=== PATIENT | female | born 1995 | race African-American/Black ===

== ENCOUNTER 2021-06-11 09:34 | Inpatient (IN) ==
[2021-06-11] MEDS ORDERED: ONDANSETRON 4 MG/2 ML VIAL IV PRN (10:11)
[2021-06-11] MEDS ORDERED: MEPERIDINE 50 MG/1 ML VIAL IV PRN (10:11)
[2021-06-11] MEDS ORDERED: OXYTOCIN/LR 20 UNIT/1,000 ML BAG IV PRN (10:11)
[2021-06-11] MEDS ORDERED: BUTORPHANOL 2 MG/ML VIAL IV PRN (10:11)
[2021-06-11] MEDS ORDERED: ONDANSETRON 4 MG/2 ML VIAL IV ONE (10:14)
[2021-06-11] MEDS ORDERED: FAMOTIDINE 20 MG/2 ML VIAL IV ONE (10:14)
[2021-06-11] MEDS ORDERED: diphenhydrAMINE 50 MG/1 ML VIAL IV PRN ×2 (10:14)
[2021-06-11] MEDS ORDERED: PROMETHAZINE 25 MG/1 ML VIAL IM ONE (10:14)
[2021-06-11] MEDS ORDERED: hydrOXYzine HCL 25 MG/1 ML VIAL IM PRN (10:14)
[2021-06-11] MEDS ORDERED: ePHEDrine 50 MG/ML VIAL IV PRN (10:14)
[2021-06-11] MEDS ORDERED: NALOXONE 0.4 MG/ML VIAL IV PRN (10:14)
[2021-06-11] MEDS ORDERED: CITRIC ACID/SODIUM CITRATE 30 ML UDCUP PO ONE (10:14)
[2021-06-11] MEDS: LACTATED RINGERS 1,000 ML IV PRN ×2 (10:25→11:14)
[2021-06-11 10:28] LABS: Basophils % 0.4 % (0.0-0.8); Eosinophils % 0.2 % (0.00-10.9); Hematocrit 35.5 VOL% (35.7-47.0); Hemoglobin 11.9 GM/DL (12.0-16.0); Immature Granulocytes % 0.4 %; Immature Granulocytes Absolute 0.02 #; Lymphocytes # 0.7 10*3/uL (1.4-4.0); Lymphocytes % 13.1 % (21.3-54.2); Mean Corpuscular HGB Conc 33.5 GM/DL (32-36); Mean Corpuscular Volume 86.8 FL (87-102); Mean Platelet Volume 9.3 FL (9.6-12.0); Monocytes % 10.4 % (1.7-12.7); Neutrophils % 75.5 % (38.7-73.9); Platelet Count 276 T/CUMM (130-400); Red Blood Count 4.09 MC/CUMM (3.8-5.5); Red Cell Distribution Width 14.9 % (9.3-17.3); White Blood Count 5.4 T/CUMM (4-12)
[2021-06-11] MEDS ORDERED: fentaNYL 2 MCG/ROPIV 0.2% EPID 100 ML EPIDURAL SCH (10:30)
[2021-06-11 10:55] LABS: Alanine Aminotransferase 19 U/L (13-56); Albumin 2.5 G/DL (3.4-5.0); Alkaline Phosphatase 295 U/L (45-117); Aspartate Amino Transferase 19 U/L (0-37); Bilirubin,Total < 0.39 MG/DL (0.20-1.00); Blood Urea Nitrogen 4 MG/DL (7-18); Carbon Dioxide 22 MMOL/L (21-32); Estimated Glom Filtration Rate 131 ML/MIN; Glucose 85 MG/DL (74-106); Osmolality,Calculated 268.8 MOS/KG (273-304); Potassium 3.6 MMOL/L (3.5-5.1); Sodium 137 MMOL/L (136-145); Total Protein 7.2 G/DL (6.4-8.2)
[2021-06-11 12:42] LABS: Bilirubin,Urine Negative (Negative); Blood, Urine Negative (Negative); Glucose,Urine (UA) Negative (Negative); Ketones,Urine Negative (Negative); Mucus,Urine Occasional /LPF (Occasional); Nitrite,Urine Negative (Negative); Protein,Urine Negative; RBC,Urine 3 /HPF (0-4); Squamous Epithelial Cell,Urine Occasional /HPF (0-10); Urine Appearance CLEAR (Clear); Urine Color Straw (Yellow); Urine Specific Gravity 1.003 (1.001-1.035); Urine Urobilinogen < 2.0 EU/DL (<2.0)
[2021-06-11] MEDS ORDERED: miSOPROStoL 200 MCG TABLET ONE (14:16)
[2021-06-11] MEDS ORDERED: METHYLERGONOVINE 0.2 MG/1 ML AMP ONE (14:17)
[2021-06-11] MEDS ORDERED: CARBOPROST TROMETHAMINE 250 MCG/ML AMP IM ONE (14:17)
[2021-06-11] MEDS ORDERED: ACETAMINOPHEN 500 MG TABLET PO ONE (16:36)
[2021-06-11] MEDS ORDERED: ACETAMINOPHEN 160 MG/5 ML UDCUP PO PRN (16:37)
[2021-06-11] MEDS ORDERED: RHO(D) IMMUNE GLOBULIN 300 MCG SYRINGE IM ONE (18:23)
[2021-06-11] MEDS ORDERED: LANOLIN 50% CREAM 0.3 OZ TUBE TOP PRN (18:23)
[2021-06-11] MEDS ORDERED: OXYTOCIN/LR 20 UNIT/1,000 ML BAG IV ONE (18:23)
[2021-06-11] MEDS ORDERED: oxyCODONE/ACETAMINOPHEN 5-325 MG TABLET PO PRN ×2 (18:23)
[2021-06-11] MEDS ORDERED: WITCH HAZEL PADS 100/JAR TOP PRN (18:23)
[2021-06-11] MEDS ORDERED: DIPH/TET/ACEL PERT BOOSTER VACCINE 0.5 ML VIAL IM ONE (18:23)
[2021-06-11] MEDS ORDERED: MEASLES/MUMPS/RUBELLA VACCINE 0.5 ML VIAL SUBCUT ONE (18:23)
[2021-06-11] MEDS ORDERED: BENZOCAINE 20%/MENTHOL 0.5% SPRAY 56 GM CAN TOP PRN (18:23)
[2021-06-11] MEDS ORDERED: IBUPROFEN 800 MG TABLET PO PRN (18:23)
[2021-06-11] MEDS ORDERED: HYDROCORTISONE 2.5% RECTAL CREAM 30 GM TUBE TOP PRN (18:23)
[2021-06-11] MEDS ORDERED: BISACODYL 10 MG SUPP RECTAL PRN (18:23)
[2021-06-11] MEDS ORDERED: ACETAMINOPHEN 325 MG TABLET PO PRN (18:23)
[2021-06-11] MEDS ORDERED: DOCUSATE SODIUM 100 MG CAPSULE PO SCH (21:00)
[2021-06-11] MEDS: IBUPROFEN 100 MG/5 ML UDCUP PO PRN (22:26)
[2021-06-12] MEDS ORDERED: FUROSEMIDE 20 MG TABLET ONE ×4 (09:06→21:24)
[2021-06-12] MEDS: DOCUSATE SODIUM 100 MG/10 ML UDCUP PO SCH ×2 (09:16→21:30)
[2021-06-12] MEDS: HYDROXYCHLOROQUINE 200 MG TABLET PO SCH ×3 (09:16→23:36)
[2021-06-12] MEDS: FUROSEMIDE 40 MG TABLET PO SCH ×3 (09:36→21:32)
[2021-06-12 09:42] LABS: Basophils % 0.3 % (0.2-1.0); Eosinophils % 0.7 % (0.0-10.0); Hematocrit 29.3 VOL% (37.0-47.0); Lymphocytes # 1.1 # (1.3-2.9); Lymphocytes % 17.6 % (20.5-45.5); Mean Corpuscular HGB Conc 34.1 GM/DL (32-36); Mean Corpuscular Volume 87.2 FL (81-99); Mean Platelet Volume 9.8 FL (7.4-10.4); Monocytes % 14.5 % (5.5-11.7); Neutrophils % 66.7 % (43.0-65.0); Platelet Count 232 T/CUMM (130-400); Red Blood Count 3.36 MC/CUMM (4.20-5.40); Red Cell Distribution Width 15.2 % (11.5-15.5); White Blood Count 6.1 T/CUMM (4.8-10.8)
[2021-06-12] MEDS: FERROUS SULFATE 325 MG TABLET PO SCH (21:32)
[2021-06-13 07:17] VITALS: BP 125/77
[2021-06-13] MEDS: IBUPROFEN 100 MG/5 ML UDCUP PO PRN (08:04)
[2021-06-13] MEDS: FERROUS SULFATE 325 MG TABLET PO SCH (08:23)
[2021-06-13] MEDS: HYDROXYCHLOROQUINE 200 MG TABLET PO SCH (08:24)
[2021-06-13] MEDS: DOCUSATE SODIUM 100 MG/10 ML UDCUP PO SCH (08:39)
== END 2021-06-13 12:20 | disposition home or self-care (01) | DRG 807 ==
LOC: N.LDOUT 09:34 → N.LD 09:36 → N.OB 20:45
PROVIDERS: ADMIT Obstetrics & Gynecology; ATTEND Obstetrics & Gynecology